=== PATIENT | male | born 1945 | race Caucasian/White ===

== ENCOUNTER → 2018-11-15 | Outpatient (CLI) | payer MEDICARE ==
--- NOTE | 2018-11-15 12:08 | XR ---
EXAMINATION TYPE: XR chest 2V DATE OF EXAM: 11/15/2018 COMPARISON: Prior chest x-ray 05/26/2017 HISTORY: Cough TECHNIQUE: Frontal and lateral views of the chest are obtained. FINDINGS: There is no focal air space opacity, pleural effusion, or pneumothorax seen. The cardiac silhouette size is stable. Aorta is dense. There is evidence of granulomatous disease in the right l marco antonio as on prior. Apical pleural thickening again noted. Arthropathy noted in the shoulders. The osseo us structures are intact. IMPRESSION: No acute cardiopulmonary process.
== END | disposition home or self-care (01) ==
LOC: RADXRMAIN 11:07
PROVIDERS: ATTEND Family Medicine
DX: R05 Cough (principal)
CPT/HCPCS: 71046

== ENCOUNTER → 2019-01-25 | Outpatient (CLI) | payer MEDICARE | END | disposition home or self-care (01) | LOC: CPPFTMAIN 13:49 | PROVIDERS: ATTEND Internal Medicine | DX: J98.4 Other disorders of lung (principal) | CPT/HCPCS: 94060; 94726; 94729 ==

== ENCOUNTER → 2019-01-30 | Outpatient (CLI) | payer MEDICARE ==
--- NOTE | 2019-01-30 17:50 | CT ---
EXAMINATION TYPE: CT chest wo con DATE OF EXAM: 01/30/2019 COMPARISON: Chest CT 10/22/2011 HISTORY: Cough x9 months CT DLP: 224 mGycm, Automated exposure control for dose reduction was used. CONTRAST: None TECHNIQUE: Axial images were obtained at 1 mm thick sections at 10 mm intervals. This will limit po rtions of the examination which may not be visualized within the [id number]. Images were obtained in the prone and supine views. FINDINGS: Portion of the thyroid visualized is normal. A small pleural-based densities along the posterior left lung base, series 8 image 46 and is stable f rom comparison. There are some punctate densities within the right middle lobe may be some scarring, series 8 image 32. These are stable from comparison. There is a 0.7 cm nodular density within the juancarlos gula, series 7 image 23. This was not identified previously but appears to be calcified and likely is a granuloma.. 0.4 cm calcifications in the posterior lateral right lung base, series 3 image 41 like ly is a granuloma. No enlarged mediastinal or hilar adenopathy is evident. Calcified mediastinal adenopathy is evident . The ascending aorta diameter at the level of the main pulmonary artery is 3.2 cm. The main pulmona ry artery diameter at the bifurcation is 2.[address] sections are obtained through the upper abdomen. Abdomen is essentially unremarkable. IMPRESSIONS: 1. No suspicious chest findings. Calcified granuloma within the lung forbes and mediastinal lymph nod es is noted.
== END | disposition home or self-care (01) ==
LOC: RADCTMAIN 14:18
PROVIDERS: ATTEND Internal Medicine
DX: J84.10 Pulmonary fibrosis, unspecified (principal); I89.8 Other specified noninfective disorders of lymphatic vessels and lymph nodes
CPT/HCPCS: 71250

== ENCOUNTER → 2021-11-05 | Outpatient (CLI) | payer MEDICARE ==
[2021-11-05 12:25] LABS: INR 0.9 (<1.2); Prothrombin Time 9.6 sec (9.0-12.0)
[2021-11-05 12:27] LABS: Partial Thromboplastin Time 21.8 sec (22.0-30.0)
[2021-11-05 18:16] LABS: HGB 14.5 g/dL (13.0-17.0); MCH 28.9 pg (27.0-32.0); MCV 87.6 fL (80.0-97.0); Mean Platelet Volume 10.6 fL (9.5-12.2); NRBC Per 100 WBC 0 /100 WBCS (0.0-0.0); Platelet Count 237 X 10*3/uL (140-440); RBC 5.02 X 10*6/uL (4.40-5.60); RDW 12.4 % (11.5-14.5); WBC 8.05 X 10*3/uL (4.50-10.00)
[2021-11-05 18:17] LABS: African American GFR (CKD) 74.1 (60.0-200.0); Albumin/Globulin Ratio 1.67 (1.60-3.17); Anion Gap 11.5 mmol/L (10.00-18.00); BUN/Creat Ratio 18.45 Ratio (12.00-20.00); Blood Urea Nitrogen 20.3 mg/dL (9.0-27.0); Calcium 9.2 mg/dL (8.7-10.3); Carbon Dioxide 24.5 mmol/L (20.0-27.5); Globulin 2.4 g/dL (1.6-3.3); Potassium 4.1 mmol/L (3.5-5.5); Total Bilirubin 0.3 mg/dL (0.30-1.20); Total Protein 6.4 g/dL (6.2-8.2)
[2021-11-05 21:02] LABS: Appearance,Urine Clear (Clear); Bilirubin,Urine Negative (Negative); Blood,Urine Negative (Negative); Color,Urine Yellow (Yellow); Ketones,Urine Negative (Negative); Nitrite,Urine Negative (Negative); Specific Gravity,Urine 1.019 (1.001-1.030); Urobilinogen,Urine 0.2 (0.2,1.0)
== END | disposition home or self-care (01) ==
LOC: LABPAT 10:18
PROVIDERS: ATTEND Orthopaedic Surgery Sports Medicine
DX: Z01.818 Encounter for other preprocedural examination (principal); R00.1 Bradycardia, unspecified
CPT/HCPCS: 80053; 81003; 85027; 85610; 85730; 87070; 93005

== ENCOUNTER → 2022-01-12 | Outpatient (CLI) | payer MEDICARE ==
[2022-01-12 11:42] LABS: ALT 29 U/L (10-49); AST 22 U/L (14-35); Chol/HDL Ratio 3.19 Ratio; LDL Cholesterol,Calculated 62.2 mg/dL (0.0-131.0)
== END | disposition home or self-care (01) ==
LOC: LABWHC1 08:15
PROVIDERS: ATTEND Internal Medicine Cardiovascular Disease
DX: E78.2 Mixed hyperlipidemia (principal)
CPT/HCPCS: 36415; 80061; 84450; 84460

== ENCOUNTER → 2023-04-16 | Outpatient (CLI) | payer MEDICARE ==
[2023-04-16 16:02] LABS: ALT 25 U/L (10-49); AST 16 U/L (14-35); Chol/HDL Ratio 3.54 Ratio; LDL Cholesterol,Calculated 65.7 mg/dL (0.0-131.0)
== END | disposition home or self-care (01) ==
LOC: LABWHC1 08:03
PROVIDERS: ATTEND Internal Medicine Cardiovascular Disease
DX: E78.2 Mixed hyperlipidemia (principal)
CPT/HCPCS: 36415; 80061; 84450; 84460

== ENCOUNTER → 2023-05-14 | Outpatient (CLI) | payer MEDICARE ==
[2023-05-14 16:36] LABS: ALT 26 U/L (10-49); AST 33 U/L (14-35); Albumin 3.9 g/dL (3.8-4.9); Alkaline Phosphatase 84 U/L (41-126); BUN/Creat Ratio 18.77 Ratio (12.00-20.00); Blood Urea Nitrogen 24.4 mg/dL (9.0-27.0); Calcium 9.3 mg/dL (8.7-10.3); Carbon Dioxide 20.5 mmol/L (21.6-31.8); Chloride 104 mmol/L (96-109); Globulin 2.3 g/dL (1.6-3.3); Glucose 240 mg/dL (70-110); Potassium 5.1 mmol/L (3.5-5.5); Sodium 139 mmol/L (135-145); Total Bilirubin 0.4 mg/dL (0.3-1.2); Total Protein 6.2 g/dL (6.2-8.2)
== END | disposition home or self-care (01) ==
LOC: LABWHC1 08:03
PROVIDERS: ATTEND Family Medicine
DX: E11.69 Type 2 diabetes mellitus with other specified complication (principal)
CPT/HCPCS: 36415; 80053; 83036